=== PATIENT | female | born 1980 | race Caucasian/White ===

== ENCOUNTER 2019-12-19 06:34 | Day surgery (SDC) | payer MEDICAID ==
[2019-12-18 09:51] LABS: BASOPHIL % 0.3 % (0-2); PLATELET COUNT 224 x10^3mcL (130-400); RED CELL DISTRIBUTION WIDTH 13.6 % (11.5-14.5)
[2019-12-18 10:02] LABS: CALCIUM 9.3 mg/dL (8.5-10.1); CHLORIDE SERUM 105 mmol/L (98-107); CREATININE SERUM 0.6 mg/dL (0.6-1.0); GFR1 > 60 mL/min; GLUCOSE SERUM 113 mg/dL (74-106); POTASSIUM SERUM 3.9 mmol/L (3.5-5.1); SODIUM SERUM 139 mmol/L (136-145)
[~2019-12-19] VITALS: Ht 165.1 cm; Wt 80.3 kg
[2019-12-19 07:29] VITALS: BP 115/66
[2019-12-19 16:58] VITALS: BP 114/63
== END 2019-12-19 15:15 | disposition home or self-care (01) ==
LOC: DS 06:34 → OR 09:30 → DS 09:30
PROVIDERS: Obstetrics & Gynecology
DX: O34.32 Maternal care for cervical incompetence, second trimester (principal); Z3A.14 14 weeks gestation of pregnancy; Z98.890 Other specified postprocedural states; Z79.899 Other long term (current) drug therapy
CPT/HCPCS: J0690; J2405; J7120

== ENCOUNTER 2020-05-22 18:24 | Emergency (ER) | payer OTHER ==
[~2020-05-22] VITALS: Ht 165.1 cm; Wt 99.3 kg
[2020-05-22 18:37] VITALS: Ht 165.1 cm; Wt 99.3 kg
[2020-05-22 20:28] VITALS: BP 137/92
== END 2020-05-22 20:07 | disposition home or self-care (01) ==
LOC: ED 18:24
DX: O26.893 Other specified pregnancy related conditions, third trimester (principal); O36.8330 Maternal care for abnormalities of the fetal heart rate or rhythm, third trimester, not applicable or unspecified; Z3A.37 37 weeks gestation of pregnancy